=== PATIENT | female | born 1995 | race Caucasian/White ===

== ENCOUNTER 2018-04-28 07:42 | Emergency (ER) | payer SELFPAY ==
[2018-04-28 08:57] LABS: Urine Blood NEGATIVE (NEG); Urine Glucose NEGATIVE (NEG); Urine Protein NEGATIVE (NEG); Urine Specific Gravity 1.025 (1.005-1.030); Urine pH 5.5 (5.0-7.0)
[2018-04-28 09:06] LABS: Absolute Lymphocytes (CBC) 2.3 K/uL (0.7-4.9); Absolute Monocytes 0.6 K/uL (0.1-1.3); Absolute Neutrophil 6.4 K/uL (1.8-8.0); Basophils % 0.5 % (0-1.3); Eosinophils % 0.9 % (0-4.4); Hematocrit 43.3 % (36.0-45.0); Lymphocytes % 24.1 % (15.3-44.8); MCH 31.1 pg (27.0-35.0); MCV 92.8 fL (80-100); MPV 7.5 fL (7.6-11.3); Monocytes % 6.6 % (3.3-12.3); RBC Red Blood Cell Count 4.67 M/uL (3.86-4.86)
[2018-04-28 09:23] LABS: ALT/SGPT 16 U/L (12-78); AST/SGOT 17 U/L (15-37); Albumin 3.9 g/dL (3.4-5.0); Alkaline Phosphatase 58 U/L (45-117); BUN Blood Urea Nitrogen 11 mg/dL (7-18); Bicarbonate 26 mmol/L (21-32); Bilirubin Direct < 0.1 mg/dL (0-0.2); Bilirubin Total 0.3 mg/dL (0.2-1.0); Glucose Level 90 mg/dL (74-106); Potassium 3.9 mmol/L (3.5-5.1); Protein, Total 7.7 g/dL (6.4-8.2); Sodium Level 136 mmol/L (136-145)
--- NOTE | 2018-04-28 10:01 | RAD REPORT ---
EXAM DESCRIPTION: US - Transvaginal Study Probe - 04/28/2018 8:43 am CLINICAL HISTORY: LL pelvic pain;Abd pain Pelvic pain. COMPARISON: Pelvis Complete dated 04/28/2018 FINDINGS: Transvaginal and transabdominal pelvic sonography was performed. The uterus is normal in size, shape and echotexture. The uterus measures 6.1 x 4.2 x 3.3 cm. The endometrial stripe measures 4 mm, normal. The right ovary measures 3.7 x 3.5 x 2.2 cm and demonstrates normal Doppler blood flow. The left ovar y contains a large anechoic cyst measuring 6.0 x 5.0 x 4.7 cm. No significant pelvic ascites. IMPRESSION: Left ovarian anechoic cyst (6.0 x 5.0 x 4.7 cm) highly likely to be functional/benign.
--- NOTE | 2018-04-28 10:11 | ER ---
Nurse's Notes [facility] Unit Name: Laura Moses Age: 22 yrs Sex: Female : 1995 Arrival Date: 04/28/2018 Time: 07:45 Bed 16 Private MD: Diagnosis: Unspecified ovarian cysts;Abdominal and pelvic pain Presentation: 04/28 07:59 Presenting complaint: Patient states: LLQ pain that began three days ago just after ss patient's period had ended. Pt states, "there has always been pain down there, but not like this.". Transition of care: patient was not received from another setting of care. Onset of symptoms was April 25, 2018. Risk Assessment: Do you want to hurt yourself or someone else? Patient reports no desire to harm self or others. Initial Sepsis Screen: Does the patient meet any 2 criteria? No. Patient's initial sepsis screen is negative. Does the patient have a suspected source of infection? No. Patient's initial sepsis screen is negative. Care prior to arrival: None. 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 - Social history:: Smoking status: Patient uses tobacco products, smokes one-half pack cigarettes per day. - Ebola Screening: : Patient denies exposure to infectious person Patient denies travel to an Ebola-affected area in the 21 days before illness onset. Screenin:00 Abuse screen: Denies threats or abuse. Nutritional screening: No deficits noted. rb1 Tuberculosis screening: No symptoms or risk factors identified. Fall Risk None identified. Assessment: 08:00 General: Appears in no apparent distress. comfortable, Behavior is calm, cooperative, rb1 Denies fever. Pain: Complains of pain in left lower quadrant Pain currently is 6 out of 10 on a pain scale. Pain began 2-3 days ago. Neuro: Level of Consciousness is awake, alert, obeys commands, Oriented to person, place, time, situation. Cardiovascular: Capillary refill < 3 seconds is brisk in bilateral fingers. Respiratory: Airway is patent Respiratory effort is even, unlabored, Respiratory pattern is regular, symmetrical. GI: Bowel sounds present X 4 quads. Abd is soft Abdomen is tender to palpation in left lower quadrant Reports nausea. : Derm: Skin is pink, warm \\T\\ dry. Musculoskeletal: Range of motion: intact in all extremities. 09:00 Reassessment: Patient appears in no apparent distress at this time. No changes from [facility] previously documented assessment. 10:00 Reassessment: Patient appears in no apparent distress at this time. Patient and/or rb1 family updated on plan of care and expected duration. Pain level reassessed. Patient is alert, oriented x 3, equal unlabored respirations, skin warm/dry/pink. Vital Signs: 08:02 Resp 16; Weight 56.7 kg; Height 5 ft. 1 in. (154.94 cm); Pain 7/10; ss 08:09 BP 123 / 70; Pulse 73; Temp 98.6(O); Pulse Ox 99% on R/A; ss 09:00 BP 118 / 68; Pulse 55; Resp 18; Pulse Ox 97% on R/A; rb1 10:00 BP 113 / 69; Pulse 51; Resp 17; Pulse Ox 95% on R/A; rb1 08:02 Body Mass Index 23.62 (56.70 kg, 154.94 cm) ED Course: 07:45 Patient arrived in ED. as 07:55 Paco Kincaid PA is PHCP. jr8 07:55 John Eldridge MD is Attending Physician. jr8 08:00 Patient has correct armband on for positive identification. Bed in low position. Call [facility] light in reach. Side rails up X 1. Pulse ox on. NIBP on. 08:01 Triage completed. ss 08:02 Arm band placed on right wrist. ss 08:17 Patient taken to ultrasound. via wheelchair. hr 08:38 US Transvaginal Study (Probe) In Process Unspecified. EDMS 08:41 Christine Lao, RN is Primary Nurse. rb1 08:42 Ultrasound completed. Patient tolerated well. Patient moved back from ultrasound. lc3 08:52 Pelvis Complete In Process Unspecified. EDMS 08:57 Initial lab(s) drawn, by me, sent to lab. Inserted saline lock: 20 gauge in right dh3 antecubital area, using aseptic technique. Blood collected. 10:30 No provider procedures requiring assistance completed. IV discontinued, intact, rb1 bleeding controlled, No redness/swelling at site. Pressure dressing applied. Administered Medications: No medications were administered Outcome: 10:11 Discharge ordered by . gerson 10:30 Discharged to home ambulatory. rb1 10:30 Condition: stable 10:30 Discharge instructions given to patient, Instructed on discharge instructions, follow up and referral plans. medication usage, Demonstrated understanding of instructions, follow-up care, medications, Prescriptions given X 2. 10:31 Patient left the ED. rb1 Signatures: Dispatcher [employer] EDMS Rosy Hanson Amelia as Smirch, Shelby, RN RN Paco Kincaid PA PA jr8 Aissatou Bird Rebecca, RN RN rb1 Gisel Reyna 3 Corrections: (The following items were deleted from the chart) 08:55 08:02 PMHx: None; rb1
--- NOTE | 2018-04-28 10:11 | EDPHYS ---
Physician Documentation [facility] Name: Laura Moses Age: 22 yrs Sex: Female : 1995 Arrival Date: 04/28/2018 Time: 07:45 Bed 16 Private MD: ED Physician John Eldridge HPI: 04/28 08:27 This 22 yrs old Female presents to ER via Ambulatory with complaints of jr8 Abdominal Pain, Pelvic Pain. 08:27 The patient presents with abdominal pain in the left lower quadrant. Onset: The jr8 symptoms/episode began/occurred gradually, 2 day(s) ago. The symptoms do not radiate. Associated signs and symptoms: none. The symptoms are described as stabbing. Modifying factors: The symptoms are alleviated by nothing, the symptoms are aggravated by movement. Severity of pain: At its worst the pain was moderate in the emergency department the pain is unchanged. The patient has experienced similar episodes in the past, a few times. The patient has not recently seen a physician. Stated that she has had LLQ pain for some time. Stated that it has never been this bad though. Just finished menstrual cycle 3 days ago. Started with pain yesterday . 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 - Social history:: Smoking status: Patient uses tobacco products, smokes one-half pack cigarettes per day. - Ebola Screening: : Patient denies exposure to infectious person Patient denies travel to an Ebola-affected area in the 21 days before illness onset. ROS: 08:27 Eyes: Negative for injury, pain, redness, and discharge, ENT: Negative for injury, jr8 pain, and discharge, Neck: Negative for injury, pain, and swelling, Cardiovascular: Negative for chest pain, palpitations, and edema, Respiratory: Negative for shortness of breath, cough, wheezing, and pleuritic chest pain, Back: Negative for injury and pain, MS/Extremity: Negative for injury and deformity, Skin: Negative for injury, rash, and discoloration, Neuro: Negative for headache, weakness, numbness, tingling, and seizure. 08:27 Abdomen/GI: Positive for abdominal pain, Negative for nausea, vomiting, and diarrhea, constipation, abdominal cramps, abdominal distension, anorexia, dysphagia, hematemesis, black/tarry stool, rectal pain, rectal bleeding, bowel incontinence, flatulence. Exam: 08:27 Eyes: Pupils equal round and reactive to light, extra-ocular motions intact. Lids and jr8 lashes normal. Conjunctiva and sclera are non-icteric and not injected. Cornea within normal limits. Periorbital areas with no swelling, redness, or edema. ENT: Nares patent. No nasal discharge, no septal abnormalities noted. Tympanic membranes are normal and external auditory canals are clear. Oropharynx with no redness, swelling, or masses, exudates, or evidence of obstruction, uvula midline. Mucous membranes moist. Neck: Trachea midline, no thyromegaly or masses palpated, and no cervical lymphadenopathy. Supple, full range of motion without nuchal rigidity, or vertebral point tenderness. No Meningismus. Cardiovascular: Regular rate and rhythm with a normal S1 and S2. No gallops, murmurs, or rubs. Normal PMI, no JVD. No pulse deficits. Respiratory: Lungs have equal breath sounds bilaterally, clear to auscultation and percussion. No rales, rhonchi or wheezes noted. No increased work of breathing, no retractions or nasal flaring. Back: No spinal tenderness. No costovertebral tenderness. Full range of motion. Skin: Warm, dry with normal turgor. Normal color with no rashes, no lesions, and no evidence of cellulitis. MS/ Extremity: Pulses equal, no cyanosis. Neurovascular intact. Full, normal range of motion. Neuro: Awake and alert, GCS 15, oriented to person, place, time, and situation. Cranial nerves II-XII grossly intact. Motor strength 5/5 in all extremities. Sensory grossly intact. Cerebellar exam normal. Normal gait. 08:27 Abdomen/GI: Inspection: abdomen appears normal, Bowel sounds: active, all quadrants, Palpation: soft, in all quadrants, moderate abdominal tenderness, in the Left lower pelvic region , mass, is not appreciated, rebound tenderness, is not appreciated, voluntary guarding, is not appreciated, involuntary guarding, is not appreciated, no appreciated organomegaly, Indicators: McBurney's point is not tender, Law's sign is negative, Rovsing's sign is negative, Liver: no appreciated palpable abnormalities, tenderness, is not appreciated. Vital Signs: 08:02 Resp 16; Weight 56.7 kg; Height 5 ft. 1 in. (154.94 cm); Pain 7/10; ss 08:09 BP 123 / 70; Pulse 73; Temp 98.6(O); Pulse Ox 99% on R/A; ss 09:00 BP 118 / 68; Pulse 55; Resp 18; Pulse Ox 97% on R/A; rb1 10:00 BP 113 / 69; Pulse 51; Resp 17; Pulse Ox 95% on R/A; rb1 08:02 Body Mass Index 23.62 (56.70 kg, 154.94 cm) ss MDM: 07:55 Patient medically screened. jr8 10:07 Differential diagnosis: bowel obstruction, diverticulitis, Ectopic , jr8 Endometriosis, non-specific abd pain, Ovarian Torsion, Pelvic Inflammatory Disease, Pyelonephritis, Tubal Ovarian Abcess, Ureterolithiasis, urinary tract infection. Data reviewed: vital signs, nurses notes, lab test result(s), radiologic studies, ultrasound, and as a result, I will discharge patient. Data interpreted: Pulse oximetry: on room air is 97 %. Interpretation: normal. Counseling: I had a detailed discussion with the patient and/or guardian regarding: the historical points, exam findings, and any diagnostic results supporting the discharge/admit diagnosis, lab results, radiology results, the need for outpatient follow up, an OB/Gyne specialist, to return to the emergency department if symptoms worsen or persist or if there are any questions or concerns that arise at home. 04/28 08:07 Order name: Basic Metabolic Panel; Complete Time: 04/28 08:07 Order name: CBC with Diff; Complete Time: 09:19 04/28 08:07 Order name: Creatinine for Radiology; Complete Time: :04/28 08:07 Order name: Hepatic Function; Complete Time: 04/28 08:50 Order name: Urine Dipstick--Ancillary (enter results); Complete Time: 08:57 bd 04/28 08:50 Order name: Urine --Ancillary (enter results); Complete Time: 08:57 04/28 08:07 Order name: Urine Test (obtain specimen); Complete Time: 08:58 04/28 08:07 Order name: IV Saline Lock; Complete Time: 08:57 04/28 08:07 Order name: Labs collected and sent; Complete Time: 08:58 04/28 08:07 Order name: Urine Dipstick-Ancillary (obtain specimen); Complete Time: 08:58 04/28 08:08 Order name: US Transvaginal Study (Probe); Complete Time: 10:06 04/28 08:51 Order name: Pelvis Complete EDMS Administered Medications: No medications were administered Disposition: 04/29 06:46 Co-signature as Attending Physician, John Eldridge MD I agree with the assessment and yao plan of care. Disposition: 04/28/18 10:11 Discharged to Home. Impression: Unspecified ovarian cysts, Abdominal and pelvic pain. - Condition is Stable. - Discharge Instructions: Abdominal Pain, Adult, Ovarian Cyst. - Prescriptions for Ibuprofen 800 mg Oral Tablet - take 1 tablet by ORAL route every 12 hours As needed take with food; 20 tablet. Tramadol 50 mg Oral Tablet - take 1 tablet by ORAL route every 8 hours as needed; 12 tablet. - Medication Reconciliation Form, Thank You Letter, Antibiotic Education, Prescription Opioid Use, Work release form form. - Follow up: Private Physician; When: 2 - 3 days; Reason: Recheck today's complaints, Continuance of care, Re-evaluation by your physician. - Problem is new. - Symptoms have improved. Signatures: Dispatcher [employer] EDIL John Eldridge MD MD cha Smirch, Shelby, RN RN Paco Jim PA PA jr8 Christine Lao, RN RN rb1 Corrections: (The following items were deleted from the chart) 04/28 08:55 08:02 PMHx: None; rb1 10:31 10:11 04/28/2018 10:11 Discharged to Home. Impression: Unspecified ovarian cysts; rb1 Abdominal and pelvic pain. Condition is Stable. Forms are Medication Reconciliation Form, Thank You Letter, Antibiotic Education, Prescription Opioid Use. Follow up: Private Physician; When: 2 - 3 days; Reason: Recheck today's complaints, Continuance of care, Re-evaluation by your physician. Problem is new. Symptoms have improved. jr8
--- NOTE | 2018-04-28 11:10 | RAD REPORT ---
EXAM DESCRIPTION: US - Pelvis Complete - 04/28/2018 8:52 am CLINICAL HISTORY: LL pelvic pain;Abd pain Pelvic pain. COMPARISON: Pelvis Complete dated 04/28/2018 FINDINGS: Transvaginal and transabdominal pelvic sonography was performed. The uterus is normal in size, shape and echotexture. The uterus measures 6.1 x 4.2 x 3.3 cm. The endometrial stripe measures 4 mm, normal. The right ovary measures 3.7 x 3.5 x 2.2 cm and demonstrates normal Doppler blood flow. The left ovar y contains a large anechoic cyst measuring 6.0 x 5.0 x 4.7 cm. No significant pelvic ascites. IMPRESSION: Left ovarian anechoic cyst (6.0 x 5.0 x 4.7 cm) highly likely to be functional/benign.
== END 2018-04-28 10:31 | disposition home or self-care (01) ==
LOC: ER 07:42
DX: N83.209 Unspecified ovarian cyst, unspecified side (principal); F17.210 Nicotine dependence, cigarettes, uncomplicated
CPT/HCPCS: 36415; 76830; 76856; 80048; 80076; 81003; 81025; 85025; 99284